=== PATIENT | female | born 2000 | race African-American/Black ===

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

== ENCOUNTER 2020-04-12 15:13 | Emergency (ER) | payer MEDICAID ==
[2020-04-12 15:43] VITALS: BP 104/59
--- NOTE | 2020-04-12 16:42 | ER Document Report ---
ED General - General Chief Complaint: Diarrhea Stated Complaint: DIARRHEA,COUGH [facility] [NO LOCAL MD] - Follow up as needed TRAVEL OUTSIDE OF THE [place] IN LAST 30 DAYS: No - HPI Notes: Chief Complaint: Historian: History obtained from patient HPI: This is a 19-year-old female who is 12 weeks presents to the ER with dry cough, diarrhea, and nausea vomiting x2 days. She was at her [employer] TE[employer] LEAD's who referred her to the ER for Covid testing. He has not had any known contacts with Covid. She denies any fever chills abdominal pain, chest pain or shortness of breath. Patient says her [employer]PS TEAM LEAD started her on prescription antiemetics which has improved her nausea vomiting she is able to tolerate p.o. intake now. Patient believes her nausea vomiting is her normal morning sickness she has had with her first trimester not associated with any type of viral illness or other acute pathology. Patient also request a urinalysis for possible UTI. She denies tim dysuria and says "I have to hold it all day at work, 90s 1 to make sure is not a UTI ". ROS: Constitutional: no fevers. HEENT: no MEHTA, sore throat, or vision changes. CV: no chest pain or palpitations. Resp: Mild dry cough, no shortness of breath. GI: no abdominal pain. Positive nausea vomiting diarrhea. : no dysuria, hematuria, or incont. MSK: no back pain, no joint swelling/redness. Skin: no rashes or itching. Neuro: no seizures, weakness, numbness, or confusion. Hematological: no ecchymosis or easy bleeding. Endocrine: no polyuria/polydipsia, no heat/cold intolerance. Psych: no SI/HI, AH/VH or memory loss. PMHx: Reviewed and agree as charted by RN. PSHx: Reviewed and agree as charted by RN. SOCHx: Reviewed and agree as charted by RN. FHX: No significant familial comorbid conditions directly related to patient complaint Current Medications: Reviewed and agree with the patient medications as charted by the RN. Allergies: Reviewed and agree with the listed allergies as charted by the RN Physical Exam: Vitals: Reviewed in chart as documented by RN. General: Alert and in NAD. Head: Normocephalic; atraumatic Eyes: PERRLA, Conjunctivae clear sclerae non-icteric bilat ENT: no soft palate swelling or uvular deviation. Mucous membranes moist Neck: trachea midline, no unilateral swelling/tenderness/lymphadenopathy CV: RRR, no M/R/G; symmetric distal pulses Resp: respirations even and unlabored, CTA bilat. GI: abd soft and nondistended. NTTP. normal BS. no masses/HSM. no CVAT bilat MSK: FROM of all extremities. No midline CTL spine tenderness/deformity Skin: warm, moist, good turgor. no rash/lesions Neuro: Alert and oriented X 4. following CN 2-12 intact. no unilateral weakness/numbness Psych: No SI/HI or AH/VH. ED Results: Medical Decision-making/Differential Diagnosis: Consider various etiologies including but not limited to COVID, strep pharyngitis, viral pharyngitis, other pharyngitis, rachel-tonsillar abscess (unlikely), retropharyngeal abscess (unlikely), Acute Suppurative Otitis media, otalgia, upper respiratory infection, viral syndrome, bronchitis, sinusitis, UTI, AGE, nausea/vomiting in , dehydration, ect Plan-we will get Covid swab and urinalysis. Offered patient basic labs to check electrolytes and or dehydration. Patient declines. Patient is well-appearing with stable vitals, no overt clinical signs of dehydration. If UA is reassuring will DC patient home, she is to self quarantine until she gets her Covid results which will be called to her in the next 2 to 5 days. Tricked return factors were discussed. Follow up with her pcp and obgyn as needed. This course of action was discussed with the patient and/or family. They were amenable to this, verbalized understanding, and were without further questions. Diagnosis: cough, diarrhea, n/v in Condition: stable Disposition: discharge - Related Data Allergies/Adverse Reactions: No Known Allergies Allergy (Verified 11/06/16 17:02) Past Medical History - Social History Smoking Status: Unknown if Ever Smoked Family History: Reviewed & Not Pertinent Patient has homicidal ideation: No Renal/ Medical History: Denies: Hx Peritoneal Dialysis Psychiatric Medical History: Reports: Hx Bipolar Disorder - Immunizations Immunizations up to date: Yes Hx Diphtheria, Pertussis, Tetanus Vaccination: Yes Physical Exam - Vital signs Vitals: Temp Pulse Resp BP Pulse Ox 98.9 F 69 16 104/59 L 100 04/12/20 15:42 04/12/20 15:42 04/12/20 15:42 04/12/20 15:42 04/12/20 15:42 Course - Re-evaluation Re-evalutation: 04/12/20 17:00 Urinalysis results are negative, no signs of infection or severe dehydration. Will DC home with supportive care where patient will await Covid results. - Vital Signs Vital signs: Temp Pulse Resp BP Pulse Ox 98.9 F 69 16 104/59 L 100 04/12/20 15:42 04/12/20 15:42 04/12/20 15:42 04/12/20 15:42 04/12/20 15:42 Discharge - Discharge Clinical Impression: Nausea/vomiting in , Cough, Diarrhea Condition: Stable Disposition: HOME, SELF-CARE Instructions: COVID-19 Guidance for Persons Under Investigation, Diarrhea, Nonspecific ([facility]) Additional Instructions: Self quarantine at home until you get your Covid results in the next 2 to 5 days and further instruction. Drink plenty of fluids to stay hydrated. Follow-up with your primary care doctor and [employer] as needed return to the ER if your condition worsens [facility] [[facility] - Follow up as needed
[2020-04-12 16:45] LABS: APPEARANCE,URINE CLEAR; BILIRUBIN,URINE NEGATIVE (NEGATIVE); COLOR,URINE YELLOW; GLUCOSE, URINE NEGATIVE (NEGATIVE); KETONES,URINE NEGATIVE (NEGATIVE); LEUKOCYTE ESTERASE,URINE NEGATIVE (NEGATIVE); NITRITE,URINE NEGATIVE (NEGATIVE); PROTEIN,URINE NEGATIVE (NEGATIVE); URINE SPECIFIC GRAVITY 1.017; UROBILINOGEN,URINE NEGATIVE mg/dL (<2.0)
== END 2020-04-12 17:12 | disposition home or self-care (01) ==
LOC: ER 15:13
DX: O26.891 Other specified pregnancy related conditions, first trimester (principal); R19.7 Diarrhea, unspecified; R05 Cough; O21.9 Vomiting of pregnancy, unspecified; Z20.828 Contact with and (suspected) exposure to other viral communicable diseases; Z3A.12 12 weeks gestation of pregnancy
CPT/HCPCS: 99283; 87635; 81001; C9803